=== PATIENT | female | born 1985 | race Caucasian/White ===

== ENCOUNTER 2016-07-17 15:01 | Emergency (ER) | payer OTHER ==
[~2016-07-17] VITALS: Ht 180.3 cm; Wt 62.0 kg
[~2016-07-17 15:01] MED LIST: BACTRIM DS1 TAB PO; CIPROFLOXACN500 MG PO; CVS IRON45 MG OR; NAPROSYN500 MG PO; PENICILLN VK500 MG PO; PRENATA3 OR; PYRIDIUM200 MG PO
[2016-07-17] MEDS ORDERED: PENICILLN VK500 MG PO (15:35)
[2016-07-17] MEDS ORDERED: MOTRIN800 MG PO (15:35)
[2016-07-17 15:45] VITALS: BP 136/87
== END 2016-07-17 15:58 | disposition home or self-care (01) | DRG 159 ==
LOC: ED 15:01
DX: K02.9 Dental caries, unspecified (principal); F17.200 Nicotine dependence, unspecified, uncomplicated

== ENCOUNTER 2016-08-19 12:02 | Emergency (ER) | payer OTHER ==
[~2016-08-19] VITALS: Ht 180.3 cm; Wt 62.0 kg
[~2016-08-19 12:02] MED LIST changes: +MOTRIN800 MG PO
[2016-08-19 12:42] LABS: URINE BILIRUBIN - DIPSTICK NEGATIVE (NEGATIVE); URINE BLOOD DIPSTICK NEGATIVE (NEGATIVE); URINE CLARITY CLEAR; URINE COLOR YELLOW; URINE GLUCOSE - DIPSTICK NEGATIVE (NEGATIVE); URINE KETONE NEGATIVE (NEGATIVE); URINE LEUK ESTERASE NEGATIVE (NEGATIVE); URINE NITRITE - DIPSTICK NEGATIVE (Negative); URINE PROTEIN - DIPSTICK NEGATIVE (NEG-TRACE); URINE SPECIFIC GRAVITY 1.025; URINE UROBILINOGEN - DIPSTICK 0.2 E.U./dL (0.2)
[2016-08-19] MEDS ORDERED: PERCOCET 5/325M1 TAB PO (12:47)
[2016-08-19] MEDS ORDERED: METROGEL1 % EX (12:47)
[2016-08-19] MEDS ORDERED: PENICILLN VK500 MG PO (12:47)
[2016-08-19 13:08] VITALS: BP 118/70
== END 2016-08-19 13:13 | disposition home or self-care (01) | DRG 759 ==
LOC: ED 12:02
PROVIDERS: Emergency Medicine
DX: N72 Inflammatory disease of cervix uteri (principal); F17.210 Nicotine dependence, cigarettes, uncomplicated; K08.89 Other specified disorders of teeth and supporting structures